=== PATIENT | female | born 1995 | race Caucasian/White ===

== ENCOUNTER 2023-04-02 08:09 | Outpatient (CLI) | payer BC, SELFPAY ==
--- NOTE | 2023-04-02 08:15 | CRLHL7_ITS ---
For Patients: As a result of the Century Cures Act, medical imaging exams and procedure reports are released immediately into your electronic medical record. You may view this report before your referring provider. If you have questions, please contact your health care provider. INDICATION: First trimester scan, establish dates. COMPARISON: None. TECHNIQUE: Real-time gee-scale imaging of the pelvis was performed. FINDINGS: Sonographic imaging demonstrates a single living intrauterine gestation. The embryo demonstrates a regular cardiac rate measuring 190 beats per minute. The embryo`s crown-rump length measurement of 2.2 cm corresponds to a gestational age of 8 weeks 6 days with a sonographic due date of 11/06/2023. There is a normal-appearing yolk sac. There are no gross abnormalities noted within the embryo at this early state of development. The gestational sac has a normal appearance. There is a small inferior perigestational hemorrhage measuring 6 x 7 x 19 millimeters. The amount of fluid within the sac appears appropriate for gestational age. The cervix is closed. Incidental cystic structure posterior to the uterus measuring 1.4 cm. Left ovarian cysts are present, the largest measures 6.7 x 6.0 x 6.5 cm. The right ovary is not visualized. There are no suspicious fluid collections noted in the cul-de-sac. IMPRESSION: Single living intrauterine with sonographic gestational age 8 weeks 6 days and sonographic due date 11/06/2023. Inferior subchorionic hemorrhage measuring 6 x 7 x 19 millimeters. Left ovarian cysts. The largest measures 6.7 cm. Dictated by Patrick Wharton MD @ 04/02/2023 10:52:08 AM (Electronically Signed)
== END 2023-04-02 08:10 | disposition home or self-care (01) ==
PROVIDERS: PCP Physician Assistant; Visit Provider Advanced Practice Midwife
DX: Z34.91 Encounter for supervision of normal pregnancy, unspecified, first trimester (principal); O20.9 Hemorrhage in early pregnancy, unspecified; O34.81 Maternal care for other abnormalities of pelvic organs, first trimester; N83.202 Unspecified ovarian cyst, left side; Z3A.08 8 weeks gestation of pregnancy
CPT/HCPCS: 76817; 86592; 86703; 86704; 86706; 86762; 86787; 86803; 86850; 86900; 86901; 87086; 87340

== ENCOUNTER 2023-04-30 09:11 | Outpatient (CLI) | payer BC, SELFPAY ==
--- NOTE | 2023-04-30 09:15 | CRLHL7_ITS ---
For Patients: As a result of the Century Cures Act, medical imaging exams and procedure reports are released immediately into your electronic medical record. You may view this report before your referring provider. If you have questions, please contact your health care provider. HISTORY: Dating and viability. Follow-up left ovarian cyst. COMPARISON: Early OB ultrasound from 04/02/2023. TECHNIQUE: Transvaginal ultrasound examination of the early was performed. FINDINGS: A single intrauterine gestational sac is seen with a pole. The crown-rump length measurement of 7.2 cm gives an estimated gestational age of 13 weeks 3 days with an estimated date of delivery of 11/02/2023. This correlates well with the LMP of 01/31/2023 which gives a clinical age of 12 weeks 5 days. Regular cardiac activity is seen at 157 BPM. The previously seen subchorionic hemorrhage located inferior to the gestational sac is no longer present. There is no sign of free fluid in the pelvis. The simple cyst in the left ovary has slightly decreased in size, now measuring 5.1 x 3.6 x 3.6 centimeters, previously 6.7 x 6.0 x 6.5 centimeters. There is normal color Doppler flow of the ovarian tissue at the periphery of the cyst. The right ovary is normal in appearance. With normal color Doppler flow. IMPRESSION: 1. Single intrauterine gestation with estimated age of 13 weeks 3 days. Regular cardiac activity is seen. 2. There has been appropriate interval growth. 3. Slight decrease in size of simple cyst in the left ovary measuring up to 5.1 centimeters in diameter, previously 6.7 centimeters. Dictated by Steve Dale MD @ 05/05/2023 11:24:07 PM (Electronically Signed)
== END 2023-04-30 09:12 | disposition home or self-care (01) ==
LOC: US 09:13
PROVIDERS: PCP Physician Assistant; Visit Provider Advanced Practice Midwife
DX: O34.81 Maternal care for other abnormalities of pelvic organs, first trimester (principal); N83.202 Unspecified ovarian cyst, left side; Z3A.13 13 weeks gestation of pregnancy
CPT/HCPCS: 76816

== ENCOUNTER 2023-06-25 09:05 | Outpatient (CLI) | payer BC, SELFPAY ==
--- NOTE | 2023-06-25 09:15 | US_ITS ---
Final Report Patient: LILLY HARMAN Facility:?[facility] Patient ID:?[id number] Site Patient ID:?[id number]. Site :?[id number] Study:? OB Pelvis -06/25/2023 10:23:09 AM Ordering Physician:Francesca Solorio Final Report: INDICATION: Evaluate anatomy. COMPARISON: 04/30/2023, 04/02/2023 TECHNIQUE: Real time gee scale imaging of the fetus was performed as well as color Doppler analysis of the umbilical vessels. FINDINGS: Sonographic imaging demonstrates a single living intrauterine gestation. Fetus demonstrates a regular cardiac rate of 167 beats per minute. Fetus has a vertex position. The placenta lies fundal posterior, left without evidence of placenta previa. Placental edge is 3.9 cm from the internal cervical os. Amniotic fluid volume appears normal. Single deepest vertical pocket: 4.8 cm. The cervix is closed and measures 3.3 cm in length. The composite ultrasound gestational age is calculated at 21 weeks 4 days with an estimated sonographic due date of 11/01/2023. The estimated weight is 423 grams which lies at the 82nd %. The following biometric measurements were obtained: Biparietal diameter: 5.4 cm/22 weeks 3 days 96th% Head circumference: 19.6 cm/21 weeks 6 days 85th% Abdominal circumference: 16.7 cm/21 weeks 5 days 75th% Femur length: 3.5 cm/20 weeks 6 days 48th% The HC/AC ratio measures: 1.18 range (1.06-1.24) On anatomic survey, there is a normal appearance of the cerebral ventricles, cavum septi pellucidi, cisterna magna and cerebellum. The nose, lips, and facial profile appear normal. The cervical, thoracic and lumbar spine are well visualized and appear normal. There is a normal four-chamber heart view and the left and right ventricular outflow tracts appear normal. The diaphragm and stomach appear normal. The kidneys and bladder also appear normal. There is a normal three-vessel cord and cord insertion site. The four extremities appear normal. IMPRESSION: Normal OB ultrasound exam with concordance of clinical and sonographic dating. No intrinsic abnormalities noted on anatomic survey. Dictated by Patrick Wharton MD @ 06/25/2023 11:27:09 AM (Electronic Signature)
== END 2023-06-25 09:06 | disposition home or self-care (01) ==
LOC: US 09:05
PROVIDERS: PCP Physician Assistant; Visit Provider Advanced Practice Midwife
DX: Z34.92 Encounter for supervision of normal pregnancy, unspecified, second trimester (principal); Z3A.21 21 weeks gestation of pregnancy
CPT/HCPCS: 76805

== ENCOUNTER 2023-08-20 09:07 | Outpatient (CLI) | payer BC, SELFPAY | END 2023-08-20 09:08 | disposition home or self-care (01) | LOC: NFLDREF 09:08 | PROVIDERS: PCP Physician Assistant; Visit Provider Advanced Practice Midwife | DX: Z34.93 Encounter for supervision of normal pregnancy, unspecified, third trimester (principal) | CPT/HCPCS: 86592; J2791 ==

== ENCOUNTER 2023-08-25 10:04 | Outpatient (CLI) | payer BC, SELFPAY | END 2023-08-25 10:05 | disposition home or self-care (01) | LOC: NFLDREF 08-27 07:34 | PROVIDERS: PCP Physician Assistant; Referring Provider Physician Assistant; Visit Provider Advanced Practice Midwife | DX: Z34.93 Encounter for supervision of normal pregnancy, unspecified, third trimester (principal) | CPT/HCPCS: 85027 ==

== ENCOUNTER 2023-09-21 01:44 | Outpatient (CLI) | payer BC, SELFPAY ==
[2023-09-21 02:05] VITALS: BP 118/71; PULSE 69
[2023-09-21 02:37] LABS: Amnisure Rom* POSITIVE
[2023-09-21 02:46] LABS: Clue Cells <20% Clue Cells Seen (None Seen); Trichomonas No Trichomonas Seen (None Seen); Yeast No Yeast Seen (None Seen)
[2023-09-21] MEDS: BETAMETHASONE SOD PHOS/ACETATE 6 MG/ML ML 12 MG IM (02:49)
--- NOTE | 2023-09-21 03:19 | PM.OBLDTN ---
OB - Triage/Final Diagnosis Visit Information Narrative: The patient is a 27 year old 1 para 0 at 33.2 weeks gestation by LMP, who presents with SROM. She ruptured at around 0050 with a large amount of clear fluid. She was Amnisure positive. She is feeling cramping occasionallaly and feeling good movement. She did have a scant amount of blood show on her pad. She was given an initial dose of betamethisone and GBS swab was SROM 0055, clear, cramping, +FM, scant blood show, Dr Nguyen Evaluation Laboratory results: Laboratory Tests 09/21/23 09/21/23 Range/Units 02:45 01:54 Membrane Rupture POSITIVE Vaginal Trichomonas No Trichomonas Seen (None Seen) Vaginal Yeast No Yeast Seen (None Seen) Vaginal Clue Cells <20% Clue Cells Seen A (None Seen) Group B Strep DNA Pending Vital signs: Vital Signs - 24 hr 09/21/23 02:05 Pulse Rate 69 Blood Pressure 118/71
--- NOTE | 2023-09-21 03:41 | P.OBHP_ITS ---
OB - H&P; HPI Antepartum History of Present Illness Date Seen: 09/21/23 Chief complaint: Maternity Narrative: Elisabeth Anton is a 27 year old female Specific Issues/Plans Spouse: Jose 1. Anxiety/Depression Stable on Lexapro 2. Asthma Inhaler PRN, feels it has worsened since finding out she was 3. Lt ovarian cyst x 2 Largest is 6.7 x 6.0 x 6.5 cm Follow-up US in 4 weeks (recommended by LOU Saldana): 5.1 x 3.6 x 3[address] Early, torsion precautions and f/u at 6 wk PP 4. O-. Rhogam at 28 weeks: given Rhogam PP: 5. Hep B antibody negative. History of Present Dating criteria: based on LMP care: good care Ultrasounds: normal 1st trimester US and normal mid trimester US complications: labor complications comment: PROM Medical complications: none Narrative: The patient is a 27 year old 1 para 0 at 33.2 weeks gestation by LMP, who presents with SROM. She ruptured at around 0050 with a large amount of clear fluid. She was Amnisure positive. She is feeling cramping occasionally and feeling good movement. She did have a scant amount of blood show on her pad. She was given an initial dose of betamethasone and GBS swab was collected. She would like to transfer to [facility] and they are accepting. Talked with Dr. Nguyen for transfer who is the accepting physical. Since she was not actively sonal, no SVE was performed. Antibiotics prophylaxis was initiated. No terbutaline was indicated and did not meet criteria for magnesium. Labs Blood type: 0 (-) negative Rubella: immune RPR/VDLR: nonreactive GBS status: unknown Review of Systems Status of ROS: Reports: 6 or more systems reviewed and unremarkable except as noted in History and below Meds Home Medications and Allergies Home Medications Medication Instructions Recorded Confirmed Type cholecalciferol (vitamin D3) 25 25 mcg PO QDAY 04/02/23 09/21/23 History mcg (1,000 unit) capsule vits no.126-ferrous fum 1 tab PO DAILY 04/30/23 09/21/23 History 28 mg iron-folic acid 800 mcg tablet (Classic ) Allergies Allergy/AdvReac Type Severity Reaction Status Date / Time No Known Drug Allergies Allergy Verified 09/20/23 09:43 OB - H&P: Exam Physical Exam: Vital signs: Pulse BP 69 118/71 09/21/23 02:05 09/21/23 02:05 Narrative: General: alert, oriented x3, no acute distress? ? Mood: appropriate? ? Lungs: CTA. Respirations - breathing unlabored? ? Heart: Regular rate and rhythm? ? Abdomen: soft, nontender, gravid uterus? ? Heart Tones: 130 bpm? ? presentation: vertex confirmed by bedside U/S ? Legs: nontender, edema none? ? Skin: warm, dry, no rashes? ? Neurologic: Intact.? OB - A/P Antepartum Assessment and Plan (1) PROM (premature rupture of membranes): Status: Acute (2) 33 weeks gestation of : Status: Acute (3) Asthma: Problem details: Has inhaler Status: Acute (4) Anxiety and depression: Status: Acute Plan at 33.2 weeks PROM grossly ruptured with clear fluid. Amnisure positive. Transfer to higher level of care for PROM. Care accepted by Dr. Nguyen at [facility]. Betamethasone given x1. Prophylactic antibiotics initiated.
[2023-09-21] MEDS: AMPICILLIN 2 GM in 0.9 % SODIUM CHLORIDE Mini-bag 100 ML IVPB (03:42)
--- NOTE | 2023-09-21 03:56 | PC.OBNST ---
NST Note NST Note Start: 09/21/23 01:53 Freq: ONCE Status: Active Protocol: Document 09/21/23 03:54 AM (Rec: 09/21/23 03:56 AM [id number]) NST Note 1 Para (# of births) 0 EDC 11/07/23 Gestational Age In Weeks & Days 33 Weeks & 2 Days Patient Presented with Complaint(s) of Leaking fluid Other Complaints Transferring [facility] Reactive Yes Appropriate for Gestational Age Yes RN Gerald RNC Date 09/21/23 RN Orlni RN Date 09/21/23 OB NST charge Yes Complete NST Note via Write Note Yes The provider's electronic signature indicates the NST is reactive/appropriate for gestational age. *Note to provider: If an addendum is required, open the patient's chart and click on the note under the Nurse/Allied Health tab.
[2023-09-21 22:51] LABS: Strep B DNA Probe Negative (Negative)
[2023-09-22 01:19] LABS: Strep B Susceptibility Needed? No
== END 2023-09-21 04:15 | disposition other institution (70) ==
LOC: OB OUT 01:45 → OB 01:45
PROVIDERS: PCP Physician Assistant; Visit Provider Advanced Practice Midwife
DX: O42.913 Preterm premature rupture of membranes, unspecified as to length of time between rupture and onset of labor, third trimester (principal); Z3A.33 33 weeks gestation of pregnancy
CPT/HCPCS: 59025; 84112; 87081; 87210; 87653; G0463; J0290; J0702

== ENCOUNTER 2023-09-21 04:03 | Outpatient (CLI) | payer BC, SELFPAY | END 2023-09-21 04:04 | disposition home or self-care (01) | LOC: AMB 09-23 16:13 | PROVIDERS: PCP Physician Assistant; Visit Provider Family Medicine | DX: O60.00 Preterm labor without delivery, unspecified trimester (principal) | CPT/HCPCS: A0425; A0429 ==